=== PATIENT | male | born 2000 | race Caucasian/White ===

== ENCOUNTER 2020-06-30 13:08 | Emergency (ER) | payer BC, OTHER ==
[2020-06-30] MEDS ORDERED: AZIT250T12 PO (13:35)
[2020-06-30] MEDS ORDERED: METH4TAB10 PO (13:35)
--- NOTE | 2020-06-30 13:35 | ED General ---
General Stated Complaint: THROAT SWELLING Source of Information: Patient Exam Limitations: No Limitations History of Present Illness Date Seen by Provider: Jun 30, 2020 Time Seen by Provider: 13:30 Initial Comments ER with a sore throat upon awakening this morning. No fever no chills. Intermittent shortness of breath none currently. No cough. Currently here working on [employer] but is from [place]. Timing/Duration: 1-2 Days Severity: Moderate Associated Systoms: Headaches Allergies and Home Medications Home Medications Azithromycin 250 Mg Tablet, 250 MG PO UD TAKE 2 TABLETS ON DAY ONE THEN TAKE 1 TABLET DAILY FOR FOUR MORE DAYS Prescribed by: BRENT HILL on 06/30/201334 Methylprednisolone 4 Mg Tab.ds.pk, 4 MG PO UD PER DOSE PACK INSTRUCTIONS Prescribed by: BRENT HILL on 06/30/201334 Patient Home Medication List Home Medication List Reviewed: Yes Review of Systems Review of Systems Constitutional: see HPI EENTM: see HPI, nose congestion, throat pain Respiratory: no symptoms reported, see HPI, short of breath Cardiovascular: no symptoms reported Genitourinary: no symptoms reported Musculoskeletal: no symptoms reported Skin: no symptoms reported Psychiatric/Neurological: No Symptoms Reported Immunological/Allergic: no symptoms reported Past Wnzkghh-Gmrrjs-Qrtmhn Hx Patient Social History Recent Foreign Travel: No Contact w/Someone Who Travel: No Physical Exam Vital Signs Capillary Refill : Height, Weight, BMI Height: '" Weight: lbs. oz. kg; BMI Method: General Appearance: No Apparent Distress, WD/WN Eyes: Bilateral Eye Normal Inspection, Bilateral Eye PERRL, Bilateral Eye EOMI HEENT: PERRL/EOMI, TMs Normal, Normal ENT Inspection, Pharyngeal Erythema (no exudate. No uvular deviation to suggest peritonsillar abscess. No hot potato voice.) Respiratory: Normal Breath Sounds, No Accessory Muscle Use, No Respiratory Distress Cardiovascular: Regular Rate, Rhythm, Normal Peripheral Pulses Gastrointestinal: Non Tender Extremity: Normal Capillary Refill, Normal Inspection Neurologic/Psychiatric: Alert, Oriented x3 Skin: Normal Color, Warm/Dry Progress/Results/Core Measures Suspected Sepsis SIRS Temperature: Pulse: Respiratory Rate: Blood Pressure / Mean: Results/Orders Lab Results Laboratory Tests Test 06/30/20 13:25 Range/Units Group A Streptococcus Screen NEGATIVE NEGATIVE My Orders Orders - BRENT HILL [employer] Rapid Strep A Screen (06/30/20 13:28) Coronavirus Sars-Cov-2 So 2019 (06/30/20 13:28) Vital Signs/I&O Capillary Refill : Departure Impression Primary Impression: Pharyngitis Qualified Codes: J02.9 - Acute pharyngitis, unspecified Disposition: HOME, SELF-CARE Condition: Stable Departure-Patient Inst. Decision time for Depature: 13:33 Patient Instructions: Sore Throat in Adults Add. Discharge Instructions: 1. Tylenol and ibuprofen for pain 2. Steroids and antibiotics as directed 3. Return to ER for any concerns. You should stay home from work until you have been with a negative Covid test and no symptoms for 72 hours. If your covid test is positive then [facility] will be in touch with you to further guide you. Scripts Methylprednisolone (Methylprednisolone Dose Pack) 4 Mg Tab.ds.pk 4 MG PO UD for 6 Days, #21 PKG PER DOSE PACK INSTRUCTIONS Prov: BRENT HILL APRN 06/30/20 Azithromycin (Azithromycin) 250 Mg Tablet 250 MG PO UD, #6 TAB TAKE 2 TABLETS ON DAY ONE THEN TAKE 1 TABLET DAILY FOR FOUR MORE DAYS Prov: BRENT HILL APRN 06/30/20 Work/School Note: Work Release Form Date Seen in the Emergency Department: Jun 30, 2020 Return to Work: Jul 03, 2020 BRENT HILL APRN Jun 30, 2020 13:35
== END 2020-06-30 14:03 | disposition home or self-care (01) ==
LOC: ER 13:10
DX: U07.1 COVID-19 (principal)
CPT/HCPCS: 87430; U0002; 87635

== ENCOUNTER 2021-06-10 12:57 | Emergency (ER) | payer SELFPAY ==
[~2021-06-10] VITALS: Ht 182.8 cm; Wt 75.0 kg
[~2021-06-10 12:57] MED LIST: AZIT250T12 PO; METH4TAB10 PO
--- NOTE | 2021-06-10 13:28 | ED Integumentary General ---
General Chief Complaint: Skin/Wound Problems Stated Complaint: SPIDER BITE ON R ARM Nursing Triage Note: AMB TO ED WITH POSSIBLE SPIDER BITE TO R UPPER ARM NOTICED ON FRIDAY. AREA SWOLLEN WITH DARK CENTER. Source: patient Exam Limitations: no limitations History of Present Illness Date Seen by Provider: Jun 10, 2021 Time Seen by Provider: 13:09 Initial Comments Patient to the ER by private conveyance from home with chief complaint about 2days swelling pain and clear fluid drainage from a wound on his right forearm. He thinks he was bit by a spider. He did not actually witness anything bite him. Is been able to drain a little fluid out of it but no abscess or pus. He had another 1 similar to this week or 2 ago on his proximal right arm which is healing up well. He is not on antibiotics. Allergies and Home Medications Allergies Coded Allergies: No Known Drug Allergies (Unverified , 06/10/21) Home Medications Azithromycin 250 Mg Tablet, 250 MG PO UD TAKE 2 TABLETS ON DAY ONE THEN TAKE 1 TABLET DAILY FOR FOUR MORE DAYS Prescribed by: BRENT HILL on 06/30/20 133 Methylprednisolone 4 Mg Tab.ds.pk, 4 MG PO UD PER DOSE PACK INSTRUCTIONS Prescribed by: BRENT HILL on 06/30/20 1335 Patient Home Medication List Home Medication List Reviewed: Yes Review of Systems Review of Systems Constitutional: No chills, No diaphoresis EENTM: No ear discharge, No ear pain Respiratory: No cough, No short of breath Cardiovascular: No chest pain, No edema Gastrointestinal: No abdominal pain, No nausea Genitourinary: No discharge, No dysuria Musculoskeletal: No back pain, No joint pain Skin: see HPI All Other Systems Reviewed Negative Unless Noted: Yes Past Rndptlv-Gpkkvo-Xbxcuj Hx Patient Social History Tobacco Use?: No Use of E-Cig and/or Vaping dev: No Substance use?: No Alcohol Use?: No Pt feels they are or have been: No Physical Exam Vital Signs Vital Signs - First Documented 06/10/21 13:05 Temp 36.1 Pulse 87 Resp 18 B/P (MAP) 120/78 (92) Pulse Ox 99 O2 Delivery Room Air Capillary Refill : Less Than 3 Seconds General Appearance: WD/WN, no apparent distress HEENT: PERRL/EOMI, pharynx normal Neck: full range of motion, normal inspection Cardiovascular: normal peripheral pulses, regular rate, rhythm Respiratory: no respiratory distress, no accessory muscle use Neurologic/Psychiatric: alert, oriented x 3 Skin: other (3 cm area of induration tenderness no palpable fluctuance over the right dorsal forearm.) Procedures/Interventions I&D : Site: Dorsal right forearm Blade Size: 11 I & D Procedure: betadine prep (Chlorhexidine) Progress After discussing risks, benefits and alternatives the patient agreed to incise and drain. We cleaned the skin off with chlorhexidine and infiltrated with 1 cc of 1% lidocaine. When the skin was properly anesthetized we used an 11 blade scalpel to make a 3 x 3 mm crosswise incision over the pointing portion of the abscess. 2 to 3 cc of thick purulent material was easily expressed. Flushed with 50 cc of sterile saline and light gauze dressing was placed. Progress/Results/Core Measures Results/Orders My Orders Orders - RACHANA NARVAEZ Lidocaine 1% Inj 20 Ml (Xylocaine 1% Inj (06/10/21 13:30) Medications Given in ED Current Medications Medications Dose Ordered Sig/Sofie Route Start Time Stop Time Status Last Admin Dose Admin Lidocaine HCl 20 ml ONCE ONCE INJ 06/10/21 13:30 06/10/21 13:31 DC 06/10/21 13:32 20 ML Vital Signs/I&O 06/10/21 13:05 Temp 36.1 Pulse 87 Resp 18 B/P (MAP) 120/78 (92) Pulse Ox 99 O2 Delivery Room Air Blood Pressure Mean: 92 Progress Progress Note : Time: 13:27 Progress Note Suspect an abscess plan to put on antibiotics and nga. Departure Impression Primary Impression: Abscess Disposition: 01 HOME, SELF-CARE Condition: Stable Departure-Patient Inst. Decision time for Depature: 13:49 Referrals: NO,LOCAL PHYSICIAN (PCP) Primary Care Physician Patient Instructions: Abscess Incision and Drainage (DC) Add. Discharge Instructions: Keep the wound clean with regular soap and water only. The wound should heal over the next day or so. Do not submerse the arm under water such as a bathtub, pool or owens until the wound has healed over. Showers are okay. Bactrim 1 tablet twice a day for the next 7 days. Warm moist heat may help reduce pain, swelling and speed recovery if applied directly over the wound. All discharge instructions reviewed with patient and/or family. Voiced understanding. Scripts Sulfamethoxazole/Trimethoprim (Bactrim Ds Tablet) 1 Each Tablet 1 EACH PO BID for 7 Days, #14 TAB 0 Refills Prov: RACHANA NARVAEZ 06/10/21 RACHANA NARVAEZ Jun 10, 2021 13:28
[2021-06-10] MEDS ORDERED: LIDOCAINE 1% INJ 20 ML 20 ML VIAL INJ ONE (13:30)
[2021-06-10] MEDS ORDERED: SULF1TAB38 PO (13:51)
[2021-06-10 13:54] VITALS: BP 120/78
== END 2021-06-10 13:54 | disposition home or self-care (01) ==
LOC: EDUNIT# 12:57 → ER 12:59
DX: L02.413 Cutaneous abscess of right upper limb (principal); Z79.52 Long term (current) use of systemic steroids
CPT/HCPCS: 10060